=== PATIENT | female | born 1965 | race African-American/Black ===

== ENCOUNTER 2016-11-29 22:04 | Emergency (ER) | payer MEDICAID, OTHER ==
[~2016-11-29] VITALS: Ht 167.6 cm; Wt 64.4 kg
[2016-11-29 23:14] VITALS: BP 112/76
== END 2016-11-30 02:49 | disposition left against medical advice (07) ==
LOC: ER 11-30 02:13
DX: Z53.21 Procedure and treatment not carried out due to patient leaving prior to being seen by health care provider (principal)